=== PATIENT | male | born 1990 | race Caucasian/White ===

== ENCOUNTER 2023-10-23 06:14 | Emergency (ER) | payer MEDICAID, OTHER ==
[~2023-10-23] VITALS: Ht 172.7 cm; Wt 100.0 kg
[~2023-10-23 06:14] MED LIST: HALOPERIDOL; RISPERDAL; TRAZADONE
[2023-10-23 06:15] VITALS: O2SAT 100
[2023-10-23 07:55] LABS: BASOPHILS % 0.5 % (0.0-2.0); CHLORIDE 107 mEq/L (98-107); EOSINOPHILS % 1.8 % (0.0-5.0); HEMATOCRIT. 44.9 % (42.0-52.0); HEMOGLOBIN. 15.1 g/dL (14.0-18.0); MEAN CORPUSCULAR HEMOGLOBIN 30.6 pg (28.0-32.0); MEAN CORPUSCULAR HGB CONC 33.7 g/dL (31.0-37.0); MEAN CORPUSCULAR VOLUME 90.8 fL (80.0-94.0); MEAN PLATELET VOLUME 8.3 fl (7.4-10.4); MONOCYTES % 9.5 % (2.0-8.0); NEUTROPHILS % 63.2 % (40.0-76.0); PLATELET 287 x1000/uL (130-400); RED BLOOD CELL COUNT 4.94 mill/uL (4.7-6.1); RED CELL DISTRIBUTION WIDTH 13.8 % (11.6-14.6); SODIUM 141 mEq/L (136-145); WHITE BLOOD COUNT 9.6 x1000/uL (4.5-11.0)
[2023-10-23 07:56] LABS: CARBON DIOXIDE 28 mEq/L (21-32)
[2023-10-23 07:57] LABS: CALCIUM 9.4 mg/dL (8.7-10.4)
[2023-10-23 08:01] LABS: CREATININE 1.1 mg/dL (0.6-1.3); GLUCOSE 107 mg/dL (70-105)
[2023-10-23 08:02] LABS: UREA NITROGEN BLOOD 8 mg/dL (9-23)
[2023-10-23 08:03] LABS: ACETAMINOPHEN 3 ug/mL (10-30)
[2023-10-23 08:23] LABS: ETHANOL BLOOD < 10 mg/dL (<10)
[2023-10-23 13:42] VITALS: BP 136/72; PULSE 80; RESP 16; TEMP 98.5
== END 2023-10-23 13:49 | disposition home or self-care (01) ==
LOC: ER 06:14
DX: F29 Unspecified psychosis not due to a substance or known physiological condition (principal); Z20.822 Contact with and (suspected) exposure to COVID-19
CPT/HCPCS: 36415; 80048; 80307; 80320; 80329; 85025; 87426; 99285; G0480